=== PATIENT | female | born 1980 | race Caucasian/White ===

== ENCOUNTER 2018-10-14 14:22 | Emergency (ER) | payer SELFPAY ==
[~2018-10-14] VITALS: Ht 160 cm; Wt 110.7 kg
[2018-10-14 14:25] VITALS: Ht 160 cm; Wt 110.7 kg
[2018-10-14 16:45] VITALS: BP 140/74
== END 2018-10-14 16:45 | disposition home or self-care (01) ==
LOC: ED 14:22
DX: L02.416 Cutaneous abscess of left lower limb (principal)
CPT/HCPCS: J2001

== ENCOUNTER 2018-10-16 18:55 | Emergency (ER) | payer MEDICAID ==
[~2018-10-16] VITALS: Ht 160 cm; Wt 112.9 kg
[2018-10-16 19:07] VITALS: Ht 160 cm; Wt 112.9 kg
[2018-10-16 21:19] VITALS: BP 138/89
== END 2018-10-16 20:45 | disposition home or self-care (01) ==
LOC: ED 18:55
DX: L02.31 Cutaneous abscess of buttock (principal)